=== PATIENT | female | born 1980 | race Caucasian/White ===

== ENCOUNTER 2019-01-17 22:44 | Outpatient (REF) | payer MEDICAID, SELFPAY ==
[2019-01-17 21:57] LABS: BUN 14 mg/dL (7-18); CREATININE 0.84 mg/dL (0.55-1.02); Calcium 8.9 mg/dL (8.5-10.1); Calculated LDL 162 mg/dL; Chloride 106 mmol/L (98-107); Cholesterol 236 mg/dL (50-200); Glucose 84 mg/dL (70-100); HDL Cholesterol 42 mg/dL (40-60); Potassium 3.9 mmol/L (3.5-5.1); Sodium 142 mmol/L (136-145); TSH 1.37 uIU/mL (0.36-3.74); Triglyceride 164 mg/dL (30-150)
== END 2019-01-17 23:04 ==
LOC: NCHCN 22:44
PROVIDERS: PCP Nurse Practitioner Family; Visit Provider Nurse Practitioner Family
DX: R53.83 Other fatigue (principal); Z13.220 Encounter for screening for lipoid disorders; E66.9 Obesity, unspecified; Z00.00 Encounter for general adult medical examination without abnormal findings
CPT/HCPCS: 80048; 80061; 83721; 84443

== ENCOUNTER 2020-09-09 12:38 | Outpatient (REF) | payer MEDICAID, SELFPAY ==
--- NOTE | 2020-09-09 08:30 | PAPFT_PTH ---
PATIENT: Reyna Logan V LOC: [facility] U#:[id number] AGE/SX: 40/F ROOM: RE09/09/[address]: Gaby Arango : 1980 BED: DIS: 09/09/2020 SPEC #: [id number] RECD: 09/10/20 12:53 STATUS: IVANIA JARETT #: [id number] MANUEL: 09/09/20 08:[address]: Gaby Arango DEPT: [facility] Cytology RECD BY: Christiane Cristobal ENTERED: 09/10/20 12:54 SP TYPE: PAPFT MARIS DR: Lia Ortiz Tissues: 1 - CX/ENDOCX FOR PAP SMEARS Procedures: PAP THIN PREP/[facility] Screening HPV DNA PROBE Comments: [id number]
== END 2020-09-09 12:39 | disposition home or self-care (01) ==
LOC: NCHCN 12:38
PROVIDERS: PCP Nurse Practitioner Family; Visit Provider Family Medicine
DX: Z12.4 Encounter for screening for malignant neoplasm of cervix (principal); Z11.51 Encounter for screening for human papillomavirus (HPV); Z00.00 Encounter for general adult medical examination without abnormal findings
CPT/HCPCS: 88142; 87624

== ENCOUNTER 2022-06-23 17:53 | Outpatient (REF) | payer MEDICAID, SELFPAY ==
[2022-06-23 21:56] LABS: Anion Gap 8.3 mmol/L (3-11); BUN 19 mg/dL (7-18); CO2 24.7 mmol/L (21.0-32.0); Calcium 9.3 mg/dL (8.5-10.1); Chloride 107 mmol/L (98-107); Estimated GFR 73.04 (mL/min/1.73m2); Glucose 94 mg/dL (74-106); Potassium 3.8 mmol/L (3.5-5.1); Sodium 140 mmol/L (136-145); TSH (W/Ref FT4) 1.18 uIU/mL (0.36-3.74)
[2022-06-23 22:18] LABS: Calculated LDL 148 mg/dL (<100); Cholesterol 230 mg/dL (<200); HDL Cholesterol 51 mg/dL (40-60); Triglyceride 158 mg/dL (<150)
== END 2022-06-23 17:54 | disposition home or self-care (01) ==
LOC: NCHCN 17:53
PROVIDERS: PCP Nurse Practitioner Family; Visit Provider Family Medicine
DX: E78.5 Hyperlipidemia, unspecified (principal); R53.83 Other fatigue; E66.8 Other obesity; R79.89 Other specified abnormal findings of blood chemistry
CPT/HCPCS: 80048; 80061; 83036; 84443

== ENCOUNTER 2024-01-16 16:21 | Outpatient (REF) | payer OTHER, SELFPAY ==
[2024-01-18 14:22] LABS: Chlamydia Result Negative (Negative); GC Result Negative (Negative)
== END 2024-01-16 16:22 | disposition home or self-care (01) ==
LOC: NCHCN 16:21
PROVIDERS: PCP Nurse Practitioner Family; Visit Provider Family Medicine
DX: Z11.3 Encounter for screening for infections with a predominantly sexual mode of transmission (principal)
CPT/HCPCS: 87491; 87591

== ENCOUNTER 2025-02-05 18:00 | Outpatient (REF) | payer BC, SELFPAY ==
[2025-02-05 20:58] LABS: HCT 37.2 % (36.0-46.0); HGB 12.6 g/dL (11.2-15.7); MCH 29.1 pg (27.0-33.0); MCHC 33.9 % (32.0-36.0); MCV 86 fL (80-95); MPV 9.9 fL (8.0-11.0); Platelet Count 341 10^3/uL (130-400); RBC 4.33 10^6/uL (3.93-5.22); RDW 13.6 % (11.7-14.6); RDW-SD 42.7 fL; WBC 7.40 10^3/uL (4.4-10.8)
[2025-02-05 21:00] LABS: ESR 2 mm/hr (0-20)
[2025-02-05 21:14] LABS: ALT 25 U/L (14-59); AST 18 U/L (15-37); Albumin 3.8 g/dL (3.4-5.0); Alkaline Phosphatase 53 U/L (46-116); Anion Gap 5.8 mmol/L (3-11); BUN 15 mg/dL (7-18); Bilirubin, Total 0.3 mg/dL (0.2-1.0); CO2 28.2 mmol/L (21.0-32.0); Calcium 9.4 mg/dL (8.5-10.1); Chloride 106 mmol/L (98-107); Estimated GFR 81.86 (mL/min/1.73m2); Glucose 104 mg/dL (74-106); Potassium 4.5 mmol/L (3.5-5.1); Sodium 140 mmol/L (136-145); TSH (W/Ref FT4) 0.80 uIU/mL (0.36-3.74); Total Protein 7.6 g/dL (6.4-8.2)
[2025-02-05 21:15] LABS: Hemoglobin A1C 5.0 % (<5.7)
== END 2025-02-05 18:01 | disposition home or self-care (01) ==
LOC: NCHCN 18:00
PROVIDERS: PCP Family Medicine; Visit Provider Family Medicine
DX: R53.83 Other fatigue (principal); D50.9 Iron deficiency anemia, unspecified; E66.9 Obesity, unspecified; Z13.1 Encounter for screening for diabetes mellitus
CPT/HCPCS: 80053; 85027; 85652; 83036; 84443